=== PATIENT | female | born 1995 | race Caucasian/White ===

== ENCOUNTER 2018-07-12 04:39 | Emergency (ER) | payer OTHER ==
[~2018-07-12] VITALS: Ht 154.9 cm; Wt 54.4 kg
[2018-07-12 04:45] VITALS: BP_SYST 110
[2018-07-12] MEDS ORDERED: KETOROLAC TROMETHAMINE 15 MG VIAL IVP ONE (06:00)
[2018-07-12] MEDS ORDERED: NACL 0.9% 1,000 ML IV ONE (06:00)
[2018-07-12 06:16] LABS: CREATININE 0.77 mg/dL (0.55-1.30); HEMOGLOBIN 12.1 g/dL (12.0-16.0); POTASSIUM 4.1 mmol/L (3.5-5.1); RED BLOOD CELL COUNT(AUTO) 3.86 MIL/uL (4.2-6.2); WHITE BLOOD COUNT (AUTO) 7.8 K/uL (4.8-10.8)
[2018-07-12 06:17] LABS: HEMATOCRIT 35.8 % (36-48); MEAN CORPUSCULAR HEMOGLOBIN 31 pg (27-31); MEAN CORPUSCULAR HGB CONC 34 % (32-36); MEAN CORPUSCULAR VOLUME 93 fL (79.0-98.0); NEUTROPHILS % (AUTO) 60.3 % (40.0-70.0); PLATELET COUNT (AUTO) 178 K/uL (130-430)
[2018-07-12 06:18] LABS: BASOPHILS % (AUTO) 0.5 % (0.0-2.0); EOSINOPHILS # (AUTO) 0.1 K/uL (0.0-0.4); EOSINOPHILS % (AUTO) 1.5 % (0.0-4.0); LYMPHOCYTES # (AUTO) 2.3 K/uL (1.0-5.5); LYMPHOCYTES % (AUTO) 29.7 % (20.5-51.5); MONOCYTES # (AUTO) 0.6 K/uL (0.0-1.0); NEUTROPHILS # (AUTO) 4.7 K/uL (1.8-7.7)
[2018-07-12 06:22] LABS: ALBUMIN 3.8 g/dL (3.4-4.8); TOTAL BILIRUBIN 0.2 mg/dL (0.0-1.0)
[2018-07-12 06:48] LABS: BILIRUBIN,URINE NEGATIVE (NEGATIVE); BLOOD, URINE NEGATIVE (NEGATIVE); CLARITY/URINE CLEAR (CLEAR); COLOR,URINE YELLOW (YELLOW); GLUCOSE,URINE NEGATIVE (NEGATIVE); KETONES,URINE NEGATIVE (NEGATIVE); LEUKOCYTE ESTERASE ,URINE NEGATIVE (NEGATIVE); NITRITE, URINE NEGATIVE (NEGATIVE); PROTEIN URINE NEGATIVE (NEGATIVE); UROBILINOGEN,URINE 0.2 (0.2-1.0)
[2018-07-12 07:00] LABS: BARBITURATE, URINE NEGATIVE (NEG <=200); BENZODIAZEPINE, URINE NEGATIVE (NEG <=150); CANNABINOID, URINE POSITIVE (NEG <=50); COCAINE, URINE NEGATIVE (NEG <=150); METHAMPHETAMINES SCREEN,URINE NEGATIVE (NEG <=500); OPIATE, URINE NEGATIVE (NEG <=100); PHENCYCLIDINE SCREEN,URINE NEGATIVE (NEG <=25); UR TRICYCLIC ANTIDEPRESSANTS NEGATIVE (NEG <=300); URINE AMPHETAMINE NEGATIVE (NEG <=500); URINE METHADONE NEGATIVE (NEG <=200); URINE OXYCODONE SCREEN NEGATIVE (NEG <=100); URINE PROPOXYPHENE SCREEN NEGATIVE (NEG <=300)
[2018-07-12 07:15] VITALS: BP_SYST 124
== END 2018-07-12 07:15 | disposition home or self-care (01) ==
LOC: SED 04:39
DX: R42 Dizziness and giddiness (principal); T40.7X5A Adverse effect of cannabis (derivatives), initial encounter; Y92.89 Other specified places as the place of occurrence of the external cause
CPT/HCPCS: 36415; 70450; 80053; 80307; 81003; 85025; 96374; 99284; J1885; J7030; 93005